=== PATIENT | female | born 1990 ===

== ENCOUNTER 2024-11-07 16:59 | Outpatient (REF) | payer OTHER, SELFPAY ==
--- NOTE | 2024-11-07 15:42 | PAPFT_PTH ---
PATIENT: Kenyetta Ferrari LOC: [facility] U#:[id number] AGE/SX: 34/F ROOM: RE11/07/[address]: Carolyn Albrecht : 1990 BED: DIS: 11/07/2024 SPEC #: [id number] RECD: 11/08/24 12:58 STATUS: LOAN REQ #: [id number] NAMAN: 11/07/24 15:[address]: Carolyn Albrecht DEPT: [facility] Cytology RECD BY: Norma Bal ENTERED: 11/08/24 12:58 SP TYPE: PAPFT OTHR DR: Unknown,Unknown Tissues: 1 - CX/ENDOCX FOR PAP SMEARS Procedures: PAP THIN PREP/[facility] Screening HPV DNA PROBE Comments: [id number] (HPV 16 & 18/45) (CHLAMYDIA/GC)
[2024-11-11 12:18] LABS: Chlamydia Result Negative (Negative); GC Result Negative (Negative)
== END 2024-11-07 17:00 | disposition home or self-care (01) ==
LOC: NCHCN 16:59
PROVIDERS: Visit Provider Family Medicine
DX: Z11.3 Encounter for screening for infections with a predominantly sexual mode of transmission (principal); Z12.4 Encounter for screening for malignant neoplasm of cervix; Z11.51 Encounter for screening for human papillomavirus (HPV)
CPT/HCPCS: 87491; 87591; 88142; 87624